=== PATIENT | female | born 1985 | race African-American/Black ===

== ENCOUNTER 2023-03-13 15:16 | Emergency (ER) | payer BC, MEDICAID ==
[~2023-03-13] VITALS: Ht 160 cm; Wt 65.0 kg
[~2023-03-13 15:16] MED LIST: ALPR1TAB2 PO
[2023-03-13 18:16] LABS: BASOPHILS % 1.1 % (0.0-2.0); EOSINOPHILS % 2.1 % (0.0-5.0); HEMATOCRIT. 36.2 % (36.0-48.0); HEMOGLOBIN. 12.1 g/dL (12.0-16.0); LYMPHOCYTES % 33.6 % (20.0-50.0); MEAN CORPUSCULAR HEMOGLOBIN 32.3 pg (28.0-32.0); MEAN CORPUSCULAR VOLUME 96.4 fL (81.0-99.0); MEAN PLATELET VOLUME 8.7 fl (7.4-10.4); MONOCYTES % 10.7 % (2.0-8.0); NEUTROPHILS % 52.5 % (40.0-76.0); PLATELET 330 x1000/uL (130-400); RED BLOOD CELL COUNT 3.76 mill/uL (4.2-5.4); RED CELL DISTRIBUTION WIDTH 14.1 % (11.6-14.6)
[2023-03-13 18:19] LABS: CHLORIDE 104 mEq/L (98-107)
[2023-03-13] MEDS ORDERED: IBUPROFEN 600MG TABLET PO ONE (18:45)
[2023-03-13 19:35] VITALS: BP 118/86
== END 2023-03-13 20:15 | disposition left against medical advice (07) ==
LOC: ER 15:16
DX: N93.8 Other specified abnormal uterine and vaginal bleeding (principal)
CPT/HCPCS: 36415; 76856; 80053; 85025; 99284